=== PATIENT | female | born 1975 | race Caucasian/White ===

== ENCOUNTER 2018-03-18 05:54 | Day surgery (SDC) | payer BC, OTHER ==
[2018-03-16 09:26] LABS: HEMATOCRIT 38.6 % (36.0-47.0); HEMOGLOBIN 13.1 g/dL (12.0-15.5); MEAN CORPUSCULAR HEMOGLOBIN 29.5 pg (27.0-33.4); MEAN CORPUSCULAR VOLUME 87 fl (80-97); PLATELET COUNT 233 10^3/uL (150-450); RED BLOOD COUNT 4.45 10^6/uL (3.72-5.28); RED CELL DISTRIBUTION WIDTH 14.3 % (11.5-14.0); WHITE BLOOD COUNT 7.2 10^3/uL (4.0-10.5)
[2018-03-16 09:35] LABS: APPEARANCE,URINE CLEAR; BILIRUBIN,URINE NEGATIVE (NEGATIVE); COLOR,URINE YELLOW; GLUCOSE, URINE NEGATIVE (NEGATIVE); KETONES,URINE NEGATIVE (NEGATIVE); LEUKOCYTE ESTERASE,URINE NEGATIVE (NEGATIVE); NITRITE,URINE NEGATIVE (NEGATIVE); PROTEIN,URINE NEGATIVE (NEGATIVE); URINE SPECIFIC GRAVITY 1.021; UROBILINOGEN,URINE NEGATIVE mg/dL (<2.0)
[2018-03-16 09:56] LABS: ALANINE AMINOTRANSFERASE 21 U/L (9-52); ALBUMIN 4.4 g/dL (3.5-5.0); ALKALINE PHOSPHATASE 80 U/L (38-126); ANION GAP 12 (5-19); ASPARTATE AMINO TRANSFERASE 24 U/L (14-36); BILIRUBIN,DIRECT 0.2 mg/dL (0.0-0.4); BILIRUBIN,TOTAL 0.5 mg/dL (0.2-1.3); BLOOD UREA NITROGEN 12 mg/dL (7-20); CALCIUM 9.1 mg/dL (8.4-10.2); CARBON DIOXIDE 25 mmol/L (22-30); CHLORIDE 104 mmol/L (98-107); GLUCOSE 99 mg/dL (75-110); POTASSIUM 3.8 mmol/L (3.6-5.0); SODIUM 141.3 mmol/L (137-145); TOTAL PROTEIN 7.3 g/dL (6.3-8.2)
[~2018-03-18 05:54] MED LIST: CEFAZOLIN 1 GM/D5W RTU 1 GM/50 ML RTUPB IV PRN; LACTATED RINGERS 1000 ML IV PRN; LIDOCAINE 0.5% INJ-PF (5 MG/ML) 50 ML SDV SUBCUT PRN; SCOPOLAMINE HYDROBROMIDE 1.5 MG PATCH.TD72 TD PRN
[2018-03-18] MEDS ORDERED: SCOPOLAMINE HYDROBROMIDE 1.5 MG PATCH.TD72 ONE (06:54)
[2018-03-18] MEDS ORDERED: LIDOCAINE 1% INJ-PF (10 MG/ML) 30 ML SDV ONE (06:55)
[2018-03-18] MEDS ORDERED: CEFAZOLIN 1 GM/D5W RTU 1 GM/50 ML RTUPB IV ONE (06:56)
[2018-03-18] MEDS ORDERED: DEXAMETHASONE SOD PHOSPHATE INJ 4 MG/1 ML VIAL ONE (07:58)
[2018-03-18] MEDS ORDERED: MIDAZOLAM 2 MG/2 ML INJ ONE (07:58)
[2018-03-18] MEDS ORDERED: PROPOFOL INJ 200 MG/20 ML VIAL IV ONE (07:58)
[2018-03-18] MEDS ORDERED: FENTANYL CITRATE INJ/PF 100 MCG/2 ML AMPUL ONE ×2 (07:58→08:54)
[2018-03-18] MEDS ORDERED: ONDANSETRON HCL INJ/PF 4 MG/2 ML SDV ONE (07:58)
[2018-03-18] MEDS ORDERED: PROMETHAZINE HCL INJ 25 MG/1 ML VIAL IV PRN ×2 (08:31)
[2018-03-18] MEDS ORDERED: FENTANYL CITRATE INJ/PF 100 MCG/2 ML AMPUL IV PRN ×3 (08:31)
[2018-03-18] MEDS ORDERED: DIPHENHYDRAMINE HCL 50 MG/ML VIAL IV PRN (08:31)
[2018-03-18] MEDS ORDERED: MEPERIDINE HCL/PF INJ 25 MG/1 ML DISP.SYRIN IV PRN (08:31)
[2018-03-18 11:39] VITALS: BP 125/72
--- NOTE | 2018-03-18 13:22 | OPERATIVE REPORT E ---
Operative Report NAME: SLY BOYD : 1975 AGE: 42Y DATE OF SURGERY: 03/18/2018 ROOM: PREOPERATIVE DIAGNOSIS: 1. MENOMETRORRHAGIA. 2. DYSFUNCTIONAL UTERINE BLEEDING. POSTOPERATIVE DIAGNOSIS: 1. MENOMETRORRHAGIA. 2. DYSFUNCTIONAL UTERINE BLEEDING. OPERATION: Dilation and curettage hysteroscopy and Novasure. SURGEON: KRYSTEN HOOVER M.D. ANESTHESIA: General. PERTINENT HISTORY AND OPERATIVE FINDINGS: This is a 42-year-old multiparous female who was having trouble with heavy and irregular bleeding; ultimately decided to proceed with a D and C and hysteroscopy with Novasure. She was aware of the risks and benefits. At the time of surgery the vagina appeared to be normal, the vulva was normal. The cervix appeared to be normal, the uterus was normal shape and size. Adnexa was negative. OPERATIVE PROCEDURE: Patient was brought into the operating room, placed on the table in a supine position, and inducted under general anesthesia. She was repositioned in dorsal lithotomy position and prepped and draped in a sterile fashion. A pelvic under anesthesia was done after emptying the bladder of approximately 30 mL of clear yellow urine. A weighted speculum was inserted. The cervix was grasped on its anterior lip with a single tooth tenaculum and an Allis. The uterus was sounded to 9 cm. The cervix was then dilated with Hegar dilators to a #8. We had a cervical length of 3.5 giving us a cavity length of 5.5. The specimen was then D and C. The endometrial tissue was curetted out, placed on a Telfa and sent to the lab. We did use polyp forceps. There was additional tissue return which suggested a possibility of an endometrial polyp. Having accomplished this, the hysteroscope was enabled with normal saline. It was gently inserted through the cervix until the uterine cavity was entered. The cavity was then explored. There was no evidence of any abnormal tissue or fibroids noted. The excess saline was then suctioned out. The hysteroscope was removed. A Novasure was then opened, gently inserted through the endocervical canal into the endometrial cavity. It was gently opened up. Then going north, south, east, west, and rotating in between, doing this 3 times, we got a cavity width of 4 cm. The stopper was pushed forward and held in place. The machine was tested. Cavity was assessed and found to be okay. It was then empowered. We did have a power level of 121, a burn time of 41 seconds. This terminated procedure. The Novasure was closed, it was removed. The hysteroscope was then reenabled and inserted through the cervix into the endometrial cavity. We did establish a good burn. This terminated the procedure. The excess fluid was removed. The equipment was taken out. She did have some bleeding on the anterior lip of the cervix where the tenaculum was. This was treated with Monsel's. As stated, the equipment was then removed and anesthesia was discontinued. She was placed back in the supine position and transferred to the recovery room in satisfactory condition. At the time of surgery there was negligible blood loss and she left the operating room in satisfactory condition. DICTATING PHYSICIAN: KRYSTEN HOOVER M.D. [id number] PHY#: [id number] ID: [id number] JOB#: [id number] ACCT: [id number] cc:KRYSTEN HOOVER M.D. >
== END 2018-03-18 10:40 | disposition home or self-care (01) ==
LOC: OROUT 05:54
PROVIDERS: ATTEND Obstetrics & Gynecology
DX: N93.8 Other specified abnormal uterine and vaginal bleeding (principal); N92.1 Excessive and frequent menstruation with irregular cycle; N84.0 Polyp of corpus uteri; E66.9 Obesity, unspecified; Z88.5 Allergy status to narcotic agent; Z79.899 Other long term (current) drug therapy; Z85.828 Personal history of other malignant neoplasm of skin; Z88.7 Allergy status to serum and vaccine; Z68.32 Body mass index [BMI] 32.0-32.9, adult
CPT/HCPCS: 58563; 36415; 85027; 81025; 80053; 81001; 88305 ×2; J2250; J0690; J1100; J3010; J2405; J2704; J3490

== ENCOUNTER 2019-06-16 07:24 | Day surgery (SDC) | payer BC, OTHER ==
[2019-06-08 08:38] LABS: APPEARANCE,URINE CLOUDY; BILIRUBIN,URINE NEGATIVE (NEGATIVE); COLOR,URINE YELLOW; GLUCOSE, URINE NEGATIVE (NEGATIVE); KETONES,URINE NEGATIVE (NEGATIVE); LEUKOCYTE ESTERASE,URINE NEGATIVE (NEGATIVE); NITRITE,URINE NEGATIVE (NEGATIVE); PROTEIN,URINE 30 mg/dL (NEGATIVE); URINE SPECIFIC GRAVITY 1.024; UROBILINOGEN,URINE NEGATIVE mg/dL (<2.0)
[2019-06-08 08:39] LABS: HEMATOCRIT 38.8 % (36.0-47.0); HEMOGLOBIN 13.3 g/dL (12.0-15.5); MEAN CORPUSCULAR HEMOGLOBIN 30.6 pg (27.0-33.4); MEAN CORPUSCULAR HGB CONC 34.4 g/dL (32.0-36.0); MEAN CORPUSCULAR VOLUME 89 fl (80-97); PLATELET COUNT 245 10^3/uL (150-450); RED BLOOD COUNT 4.35 10^6/uL (3.72-5.28); RED CELL DISTRIBUTION WIDTH 13.7 % (11.5-14.0); WHITE BLOOD COUNT 7.7 10^3/uL (4.0-10.5)
[2019-06-08 09:04] LABS: ALBUMIN 4.3 g/dL (3.5-5.0); ALKALINE PHOSPHATASE 82 U/L (38-126); ANION GAP 11 (5-19); ASPARTATE AMINO TRANSFERASE 41 U/L (14-36); BILIRUBIN,DIRECT 0.2 mg/dL (0.0-0.4); BILIRUBIN,TOTAL 0.6 mg/dL (0.2-1.3); BLOOD UREA NITROGEN 10 mg/dL (7-20); CARBON DIOXIDE 28 mmol/L (22-30); CHLORIDE 100 mmol/L (98-107); GLUCOSE 108 mg/dL (75-110); TOTAL PROTEIN 7.5 g/dL (6.3-8.2)
[~2019-06-16 07:24] MED LIST changes: +LIDOCAINE 1% INJ-PF (10 MG/ML) 30 ML SDV ONE; -SCOPOLAMINE HYDROBROMIDE 1.5 MG PATCH.TD72 TD PRN
[2019-06-16] MEDS ORDERED: CEFAZOLIN 1 GM/D5W RTU 1 GM/50 ML RTUPB IV ONE (07:39)
[2019-06-16] MEDS ORDERED: FENTANYL CITRATE INJ/PF 100 MCG/2 ML AMPUL ONE (08:40)
[2019-06-16] MEDS ORDERED: KETOROLAC TROMETHAMINE 60 MG/2 ML SDV ONE (08:40)
[2019-06-16] MEDS ORDERED: PROPOFOL INJ 200 MG/20 ML VIAL IV ONE (08:41)
[2019-06-16] MEDS ORDERED: MIDAZOLAM 2 MG/2 ML INJ ONE (08:41)
[2019-06-16] MEDS ORDERED: ONDANSETRON HCL INJ/PF 4 MG/2 ML SDV ONE ×2 (08:41→10:04)
[2019-06-16] MEDS ORDERED: DEXAMETHASONE SOD PHOSPHATE INJ 4 MG/1 ML VIAL ONE (08:41)
[2019-06-16] MEDS ORDERED: ONDANSETRON HCL INJ/PF 4 MG/2 ML SDV IV PRN (09:23)
[2019-06-16] MEDS ORDERED: FENTANYL CITRATE INJ/PF 100 MCG/2 ML AMPUL IV PRN ×3 (09:23)
[2019-06-16] MEDS ORDERED: DIPHENHYDRAMINE HCL 50 MG/ML VIAL IV PRN (09:23)
[2019-06-16] MEDS ORDERED: MEPERIDINE HCL/PF INJ 25 MG/1 ML DISP.SYRIN IV PRN (09:23)
--- NOTE | 2019-06-16 09:49 | Brief Operative Note ---
BRIEF OPERATIVE REPORT DATE OF SURGERY: 06/16/19 TIME OF SURGERY: 09:20 PREOPERATIVE DIAGNOSIS: Dysfunctional uterine bleeding POSTOPERATIVE DIAGNOSIS: Dysfunctional uterine bleeding SURGEON: Drake ALONZO [address] FREIGHT: None FINDINGS: Bicornate uterus COMPLICATIONS: None ESTIMATED BLOOD LOSS: Negligible TISSUE REMOVED OR ALTERED: Endometrium TECHNICAL PROCEDURE: Patient was brought into the OR placed on the table in supine position and then inducted under general anesthesia. The bladder was drained of approximately 25 cc of clear yellow urine. Pelvic under anesthesia was then performed. A weighted vaginal speculum was then inserted. The cervix was grasped on its anterior lip with a single-tooth tenaculum and an Allis clamp. The cervix was dilated with Hegar dilators. Cervix measured 4 cm. Uterine cavity measured 6 cm. A curettage was then carried out. A hysteroscope was then inserted through the cervix and using normal saline the cavity was explored. It became apparent that the patient had a bicornate uterus or perhaps a septated uterus. The excess saline was suctioned out. The tenaculum and Allis were removed from the anterior lip of the cervix. There was no active evidence of bleeding. Weighted speculum was removed. Anesthesia was discontinued and the patient was placed back in the supine position. Patient was transferred recovery room in satisfactory condition. Dr. Husain dictating on 06/16/2019 thank you
[2019-06-16] MEDS ORDERED: TRAMADOL HCL 50 MG TABLET PO PRN (10:22)
[2019-06-16] MEDS ORDERED: HYDROXYZINE HCL INJ 50 MG/1 ML VIAL IM PRN (10:23)
[2019-06-16 11:40] VITALS: BP 127/86
== END 2019-06-16 11:25 | disposition home or self-care (01) ==
LOC: OROUT 07:24
PROVIDERS: ATTEND Obstetrics & Gynecology
DX: N93.8 Other specified abnormal uterine and vaginal bleeding (principal); N92.1 Excessive and frequent menstruation with irregular cycle; Z88.7 Allergy status to serum and vaccine; Z88.5 Allergy status to narcotic agent; Z79.899 Other long term (current) drug therapy
CPT/HCPCS: 36415; 85027; 81025; 80053; 81001; 88305 ×2; 00952; 58563; J2250; J0690; J1100; J1885; J3010; J2405; J2704; 952; J3490